=== PATIENT | female | born 1995 | race Two or more races ===

== ENCOUNTER 2022-10-13 00:18 | Inpatient (IN) | payer MEDICAID, OTHER ==
[~2022-10-13] VITALS: Ht 152.4 cm; Wt 86.2 kg
[2022-10-13] MEDS ORDERED: PENICILLIN G POT 5MIL/D5 50ML 50 ML IV ONE (00:45)
[2022-10-13] MEDS ORDERED: LIDOCAINE 2%HCL (LOCAL ANESTH.) INJ 20ML MDV IJ PRN (00:45)
[2022-10-13] MEDS ORDERED: DERMOPLAST 60ML BOTTLE TOP PRN (00:45)
[2022-10-13] MEDS ORDERED: PROMETHAZINE HCL 25 MG/ML 1ML IV PRN (00:45)
[2022-10-13] MEDS ORDERED: PHISODERM TOP SOLN 240ML BTL TOP PRN (00:45)
[2022-10-13] MEDS ORDERED: WITCH HAZEL-GLYCERIN PAD TOP PRN (00:45)
[2022-10-13 01:08] LABS: Urine Amorphous Crystal FEW /hpf (None Seen); Urine Bacteria MOD /hpf (None Seen); Urine Blood 3+ /uL (Negative); Urine Clarity HAZY (Clear); Urine Color Colorless (Yellow); Urine Hyaline Cast FEW /lpf (0 - 2); Urine Protein, UAD 1+ (Negative); Urine Specific Gravity 1.004 (1.001-1.035); Urine Urobilinogen Normal (Negative); Urine WBC 4 /hpf (0 - 5)
[2022-10-13 01:16] LABS: Amphetamine Screen, Urine Neg (NEGATIVE); Barbiturate Scree,Urine Neg (NEGATIVE); Benzodiazephine Screen, Urine Neg (NEGATIVE); Cannabinoid Screen, Urine Neg (NEGATIVE); Cocaine Screen, Urine Neg (NEGATIVE); Opiate Scree,Urine Neg (NEGATIVE); Phencyclidine Screen, Urine Neg (NEGATIVE)
[2022-10-13] MEDS: LACTATED RINGER'S 1,000 ML IV SCH ×3 (01:17→16:14)
[2022-10-13 01:21] LABS: Basophils # (auto) 0 10 ^3/uL (0-0.2); Basophils % (auto) 0.5 % (0.0-2.0); Eosinophils # (auto) 0 10 ^3/uL (0-0.8); Eosinophils % (auto) 0.3 % (0.0-7.0); Hemoglobin 12.2 g/dL (12.2-16.2); Lymphocytes # (auto) 1.3 10 ^3/uL (0.4-5.4); Lymphocytes % (auto) 16.8 % (10.0-50.0); Mean Corpuscular Hemoglobin 29.3 pg (28.0-32.0); Mean Corpuscular Hgb Conc. 33.8 g/dL (32.0-36.0); Mean Corpuscular Volume 86.5 fL (80.0-100.0); Monocytes # (auto) 0.8 10 ^3/uL (0-1.3); Monocytes % (auto) 9.8 % (0.0-12.0); Neutrophils # (auto) 5.7 10 ^3/uL (1.6-8.6); Neutrophils % (auto) 72.6 % (37.0-80.0); Nucleated Red Blood Cells % 0.1 %; Red Blood Cells 4.17 10^6/uL (4.0-5.20); Red Cell Distribution Width 14.8 % (11.8-14.3); White Blood Cell 7.8 10^3/uL (4.4-10.8)
[2022-10-13 01:36] LABS: INR 0.9 (0.9-1.15); Partial Thromboplastin Time 29.8 SEC (24.5-34.5); Prothrombin Time 9.5 sec (9.3-11.8)
[2022-10-13 01:37] LABS: Alanine Aminotransferase 22 U/L (7-40); Albumin 3.9 g/dL (3.2-4.8); Alkaline Phosphatase 200 U/L (46-116); Aspartate Aminotransferase 18 U/L (13-40); Calcium 8.7 mg/dL (8.7-10.4); Chloride 106 mmol/L (98-107); Glucose 97 mg/dL (74-106); Potassium 3.6 mmol/L (3.5-5.1); Sodium 136 mmol/L (136-145)
[2022-10-13 01:38] LABS: Bilirubin, Total 0.5 mg/dL (0.2-1.0); Total Protein 6.6 g/dL (5.7-8.2)
[2022-10-13 01:39] LABS: COVID19 ANTIGEN SOFIA FIA POSITIVE (NEGATIVE)
[2022-10-13 02:06] LABS: BUN/Creatinine Ratio 9.6 (10.0-20.0); Blood Urea Nitrogen < 5 mg/dL (9-23)
[2022-10-13] MEDS ORDERED: PREN-96 PO (02:44)
[2022-10-13] MEDS ORDERED: miSOPROStol 50 MCG per PRE-CUT 1/2 TAB PO PRN (03:30)
[2022-10-13] MEDS: ceFAZolin 1GM/50ML 50 ML IV SCH ×3 (03:44→19:53)
[2022-10-13] MEDS: ACETAMINOPHEN 325 MG TAB PO PRN (03:45)
[2022-10-13] MEDS ORDERED: PENICILLIN G POTASSIUM 2,500,000 UNITS in D5W 5% 50 ML IV SCH (04:45)
[2022-10-13] MEDS ORDERED: fentaNYL CITRATE 100 MCG/2 ML VL IM ONE (05:00)
[2022-10-13] MEDS ORDERED: PENICILLIN G POT 5MILLION UNIT VIAL ONE (05:20)
[2022-10-13] MEDS ORDERED: STERILE WATER 10 ML ONE (05:25)
[2022-10-13] MEDS: PENICILLIN G POTASSIUM 2,500,000 UNITS in D5W 5% 50 ML IV SCH ×5 (05:30→21:30)
[2022-10-13] MEDS ORDERED: fentaNYL CITRATE 100 MCG/2 ML VL IV ONE ×4 (05:45→19:45)
[2022-10-13] MEDS ORDERED: ROPIVACAINE HCL 200 ML EPI SCH ×2 (07:30→19:45)
[2022-10-13] MEDS ORDERED: LIDOCAINE HCL 2 %PF INJ 10ML AMP IJ ONE ×2 (07:30→19:45)
[2022-10-13] MEDS ORDERED: ePHEDrine SULFATE 50 MG/ML AMP IV ONE ×2 (07:30→19:45)
[2022-10-13] MEDS ORDERED: NALOXONE HCL 0.4 MG/ML VIAL IV ONE (07:30)
[2022-10-13] MEDS ORDERED: ONDANSETRON HCL 4 MG/2 ML VIAL IV PRN (08:45)
[2022-10-13] MEDS ORDERED: TERBUTALINE SULFATE 1 MG/ML 1ML VIAL SC PRN (08:45)
[2022-10-13] MEDS ORDERED: LACT. RINGERS/OXYTOCIN 20UNITS 1,000 ML IV SCH (09:00)
[2022-10-13] MEDS ORDERED: LACT. RINGERS/OXYTOCIN 20UNITS 500 ML IV ONE ×3 (09:15→12:00)
[2022-10-13] MEDS ORDERED: fentaNYL CITRATE 100 MCG/2 ML VL ONE (15:10)
[2022-10-13] MEDS ORDERED: ACETAMINOPHEN 325 MG TAB PO STA (15:56)
[2022-10-14] VITALS (7 sets, daily range): BP systolic 126–134; BP diastolic 67–81; PULSE 20–107; RESP 18–20; TEMP 97.9–98.9; O2SAT 97–98
[2022-10-14] MEDS ORDERED: CARBOPROST TROMETHAMINE 250 MCG/1ML VIAL IM PRN (01:15)
[2022-10-14] MEDS ORDERED: miSOPROStol 100 mcg TAB PR PRN (01:15)
[2022-10-14] MEDS ORDERED: METHYLERGONOVINE MALEATE 0.2 MG/ML AMP IM PRN (01:15)
[2022-10-14] MEDS ORDERED: miSOPROStol 100 mcg TAB SL PRN (01:15)
[2022-10-14] MEDS ORDERED: ONDANSETRON HCL 4 MG/2 ML VIAL IV PRN (01:15)
[2022-10-14] MEDS: PENICILLIN G POTASSIUM 2,500,000 UNITS in D5W 5% 50 ML IV SCH (01:40)
[2022-10-14] MEDS: ACETAMINOPHEN 325 MG TAB PO PRN (01:57)
[2022-10-14] MEDS ORDERED: ACETAMINOPHEN 325 MG TAB PO PRN (05:15)
[2022-10-14] MEDS ORDERED: ONDANSETRON ODT 4 MG TAB PO PRN (05:15)
[2022-10-14] MEDS ORDERED: IBUPROFEN 600 MG TAB PO PRN (05:15)
[2022-10-14] MEDS: ceFAZolin 1GM/50ML 50 ML IV SCH (06:55)
[2022-10-14] MEDS ORDERED: DIPHENOXYLATE W/ATROPINE 2.5 MG TAB PO SCH (10:00)
[2022-10-14] MEDS ORDERED: ceFAZolin 1GM/50ML 50 ML IV SCH (15:00)
[2022-10-14] MEDS ORDERED: DOCUSATE SOD 100 MG CAP PO SCH (22:00)
[2022-10-15 05:07] LABS: RPR Non Reactive (Non Reactive)
[2022-10-15 21:06] LABS: Treponema pallidum Ab (FTA-Ab) Non Reactive (Non Reactive)
== END 2022-10-14 20:44 | disposition home or self-care (01) | DRG 560 ==
LOC: LDRP 00:18 → OBSVTOIN 00:49 → LDRP 10:37
PROVIDERS: ADMIT Obstetrics & Gynecology; ATTEND Obstetrics & Gynecology
PROC: 3E0P7VZ Introduction of Hormone into Female Reproductive, Via Natural or Artificial Opening (ICD-10-PCS; 2022-10-13)
PROC: 10D07Z6 Extraction of Products of Conception, Vacuum, Via Natural or Artificial Opening (ICD-10-PCS; principal; 2022-10-14)
PROC: 3E0R3BZ Introduction of Anesthetic Agent into Spinal Canal, Percutaneous Approach (ICD-10-PCS; 2022-10-14)
PROC: 00HU33Z Insertion of Infusion Device into Spinal Canal, Percutaneous Approach (ICD-10-PCS; 2022-10-14)
PROC: 10H07YZ Insertion of Other Device into Products of Conception, Via Natural or Artificial Opening (ICD-10-PCS; 2022-10-14)
PROC: 0KQM0ZZ Repair Perineum Muscle, Open Approach (ICD-10-PCS; 2022-10-14)
DX: O98.52 Other viral diseases complicating childbirth (principal); Z37.0 Single live birth; U07.1 COVID-19; O99.52 Diseases of the respiratory system complicating childbirth; J98.8 Other specified respiratory disorders; O99.214 Obesity complicating childbirth; E66.01 Morbid (severe) obesity due to excess calories; O42.92 Full-term premature rupture of membranes, unspecified as to length of time between rupture and onset of labor; O69.81X0 Labor and delivery complicated by cord around neck, without compression, not applicable or unspecified; Z3A.38 38 weeks gestation of pregnancy; O70.1 Second degree perineal laceration during delivery
CPT/HCPCS: 36415; 59025; 80053; 80307; 81001; 81002; 85025; 85610; 85730; 86592; 86850; 86900; 86901; 87426; 94760; 94762; 96360; 96361; 96366; G0378; J0690; J2540; J2590; J7060